=== PATIENT | male | born 1955 | race Caucasian/White ===

== ENCOUNTER 2019-05-09 13:43 | Inpatient (IN) | payer OTHER ==
[~2019-05-09] VITALS: Ht 175.3 cm; Wt 91.7 kg
[~2019-05-09 13:43] MED LIST: HYDCHL12.5 PO; LISI20 PO; Metformin HCl1000 MG PO
[2019-05-09 14:30] LABS: BASOPHILS ABSOLUTE AUTO 0.07 K/mm3 (0.00-0.23); BASOPHILS PERCENT AUTO 0 % (0-2); EOSINOPHILS ABSOLUTE AUTO 0.22 K/mm3 (0.00-0.68); EOSINOPHILS PERCENT AUTO 1 % (0-6); Hematocrit 31.6 % (37.0-53.0); Hemoglobin 10.4 g/dL (13.5-17.5); IMMATURE GRAN ABSOLUTE AUTO 0.24 K/mm3 (0.00-0.10); IMMATURE GRAN PERCENT AUTO 1 % (0-1); LYMPHOCYTES ABSOLUTE AUTO 1.99 K/mm3 (0.84-5.20); LYMPHOCYTES PERCENT AUTO 12 % (21-46); MONOCYTES ABSOLUTE AUTO 1.95 K/mm3 (0.16-1.47); MONOCYTES PERCENT AUTO 12 % (4-13); Mean Corpuscular HGB 34.2 pg (26.0-34.0); Mean Corpuscular HGB Conc 32.9 g/dL (31.5-36.5); Mean Corpuscular Volume 104 fL (80-100); Mean Platelet Volume 12.4 fL (9.1-12.4); NEUTROPHILS ABSOLUTE AUTO 12.48 K/mm3 (1.96-9.15); NEUTROPHILS PERCENT AUTO 74 % (41-73); Platelet Count 260 K/mm3 (150-400); RDW Coefficient Variation 18.9 % (11.7-14.2); RDW Standard Deviation 69.7 fL (35.1-46.3); Red Blood Cell Count 3.04 M/mm3 (4.30-5.90); White Blood Cell Count 16.95 K/mm3 (4.00-11.30)
[2019-05-09 14:44] LABS: Troponin I <0.015 ng/mL (0.000-0.040)
[2019-05-09 14:45] LABS: Alanine Aminotransfer (ALT/SGP 247 U/L (12-78); Albumin, Blood 1.6 g/dL (3.4-5.0); Albumin/Globulin Ratio 0.3 (0.8-1.8); Alk Phos 553 U/L (50-136); Anion Gap 11 mmol/L (6-16); Aspartate Aminotrans (AST/SGOT 344 U/L (12-37); Bilirubin, Total 8.5 mg/dL (0.1-1.0); Blood Urea Nitrogen 27 mg/dL (8-24); Bun/Creatinine Ratio 20.3 (12.0-20.0); CO2, Blood 15 mmol/L (21-32); Calcium, Blood 8.2 mg/dL (8.5-10.1); Chloride, Blood 109 mmol/L (98-108); Creatinine, Blood 1.33 mg/dL (0.60-1.20); Globulin, Blood 5.6 g/dL (2.2-4.0); Glomerular Filtration Rate 58 (60-); Glucose, Blood 128 mg/dL (70-99); Potassium, Blood 4.4 mmol/L (3.5-5.5); Sodium, Blood 135 mmol/L (136-145); Total Protein, Blood 7.2 g/dL (6.4-8.2)
[2019-05-09] MEDS ORDERED: AMLO10 PO (15:16)
[2019-05-09] MEDS ORDERED: Lopressor 25 mg25 MG PO (15:16)
[2019-05-09] MEDS ORDERED: ZESTRIL40 MG PO (15:16)
[2019-05-09] MEDS ORDERED: DOXY100 PO (15:17)
[2019-05-09 15:50] LABS: International Normalized Ratio 1.76; Prothrombin Time Results 17.7 Sec (9.7-11.5)
[2019-05-09] MEDS ORDERED: TRIA15CR3 TOP (19:07)
[2019-05-09 19:10] LABS: International Normalized Ratio 1.87; Prothrombin Time Results 18.7 Sec (9.7-11.5)
--- NOTE | 2019-05-10 04:48 | NUR ---
SHIFT SUMMARY: PT IS ALERT AND ORIENTED. PT IS CALM AND COOPERATIVE WITH CARE. PT CALLS APPROPRIATELY. PT IS INDEPENDENT IN THE ROOM. PT DENIES PAIN, NAUSEA, VOMITING, AND SOB. CONSULT CALLED FOR DR. JETER THROUGH ANSWERING SERVICE. PT SLEPT MUCH OF THE NIGHT WHEN NOT DISTURBED. NO ACUTE CHANGES OVERNIGHT. WILL CONTINUE TO MONITOR.
[2019-05-10 05:17] LABS: BASOPHILS ABSOLUTE AUTO 0.09 K/mm3 (0.00-0.23); BASOPHILS PERCENT AUTO 1 % (0-2); EOSINOPHILS ABSOLUTE AUTO 0.17 K/mm3 (0.00-0.68); EOSINOPHILS PERCENT AUTO 1 % (0-6); Hematocrit 29.9 % (37.0-53.0); Hemoglobin 9.9 g/dL (13.5-17.5); IMMATURE GRAN ABSOLUTE AUTO 0.29 K/mm3 (0.00-0.10); IMMATURE GRAN PERCENT AUTO 2 % (0-1); LYMPHOCYTES ABSOLUTE AUTO 2.32 K/mm3 (0.84-5.20); LYMPHOCYTES PERCENT AUTO 14 % (21-46); MONOCYTES ABSOLUTE AUTO 1.88 K/mm3 (0.16-1.47); MONOCYTES PERCENT AUTO 11 % (4-13); Mean Corpuscular HGB 33.9 pg (26.0-34.0); Mean Corpuscular HGB Conc 33.1 g/dL (31.5-36.5); Mean Corpuscular Volume 102 fL (80-100); Mean Platelet Volume 12.7 fL (9.1-12.4); NEUTROPHILS ABSOLUTE AUTO 12.41 K/mm3 (1.96-9.15); NEUTROPHILS PERCENT AUTO 72 % (41-73); Platelet Count 273 K/mm3 (150-400); RDW Coefficient Variation 18.6 % (11.7-14.2); RDW Standard Deviation 67.4 fL (35.1-46.3); Red Blood Cell Count 2.92 M/mm3 (4.30-5.90); White Blood Cell Count 17.16 K/mm3 (4.00-11.30)
[2019-05-10 05:41] LABS: Albumin, Blood 1.7 g/dL (3.4-5.0); Albumin/Globulin Ratio 0.3 (0.8-1.8); Bun/Creatinine Ratio 21.4 (12.0-20.0); Calcium, Blood 8.4 mg/dL (8.5-10.1); Creatinine, Blood 1.31 mg/dL (0.60-1.20); Globulin, Blood 5.4 g/dL (2.2-4.0); Potassium, Blood 4.1 mmol/L (3.5-5.5); Total Protein, Blood 7.1 g/dL (6.4-8.2)
--- NOTE | 2019-05-10 18:59 | NUR ---
NO ACUTE CHANGES THIS SHIFT. PATIENT STARTED ON NS @ 100X2 BAGS TIDAY AND LASIX D/C'D. PATIENT DENIES ANY PAIN. VSS, ON RA. 20G IV TO L FA WNL. TOLERATING FL DIET. SKIN JAUNDICED, BUT INTACT. A/OX4, UP INDEPENDENTLY IN ROOM. CALM AND COOPERATIVE WITH CARE, CALLS APPROPRIATELY FOR ASSISTANCE.
[2019-05-11 02:06] LABS: HBSAG SCREEN Negative (Negative); HEP A AB, IGM Negative (Negative); HEP B CORE AB, IGM Negative (Negative); HEP C VIRUS AB >11.0 (0.0-0.9)
--- NOTE | 2019-05-11 04:11 | NUR ---
SHIFT SUMMARY: PT IS ALERT AND ORIENTED. PT IS CALM AND COOPERATIVE WITH CARE. PT CALLS APPROPRIATELY. PT IS INDEPENDENT IN THE ROOM. PT DENIES PAIN, NAUSEA, VOMITING, AND SOB. 2ND BAG OF FLUIDS RUNNING. PT SLEPT INTERMITTENTLY THROUGHOUT THE NIGHT. POSSIBLE DC TODAY. NO ACUTE CHANGES OR COMPLICATIONS. WILL REPORT TO DAY NURSE.
[2019-05-11 05:37] LABS: Alanine Aminotransfer (ALT/SGP 188 U/L (12-78); Albumin, Blood 2.1 g/dL (3.4-5.0); Albumin/Globulin Ratio 0.4 (0.8-1.8); Alk Phos 495 U/L (50-136); Anion Gap 8 mmol/L (6-16); Aspartate Aminotrans (AST/SGOT 244 U/L (12-37); Blood Urea Nitrogen 23 mg/dL (8-24); CO2, Blood 19 mmol/L (21-32); Calcium, Blood 8.3 mg/dL (8.5-10.1); Chloride, Blood 112 mmol/L (98-108); Globulin, Blood 4.9 g/dL (2.2-4.0); Glomerular Filtration Rate >60 (60-); Glucose, Blood 135 mg/dL (70-99); Potassium, Blood 4.1 mmol/L (3.5-5.5); Sodium, Blood 139 mmol/L (136-145)
[2019-05-11 11:26] LABS: Antinuclear Antibody Screen Negative (Negative)
--- NOTE | 2019-05-11 12:00 | NUR ---
PATIENT D/C'D TO [facility] WITH FAMILY. RX MEDICATIONS FAXED TO [facility] IN [place]. D/C INSTRUCTIONS AND EDUCATION DISCUSSED WITH PATIENT AND COPY PROVIDED. PATIENT DENIES ANY FURTHER QUESTIONS OR CONCERNS.
[2019-05-12 21:05] LABS: HCV LOG10 6.587 (.); HEPATITIS C QUANTITATION 3860000 IU/mL (.)
[2019-05-17 10:07] LABS: HEPATITIS C GENOTYPE 1a (.)
== END 2019-05-11 12:07 | disposition home or self-care (01) | DRG 434 ==
LOC: ER 13:43 → MEDS 17:48 → ENPENDDIS 05-11 10:50 → MEDS 05-11 12:07
PROVIDERS: Emergency Medicine; ADMIT Internal Medicine
DX: K74.69 Other cirrhosis of liver (principal); K70.10 Alcoholic hepatitis without ascites; E88.09 Other disorders of plasma-protein metabolism, not elsewhere classified; I95.9 Hypotension, unspecified; I10 Essential (primary) hypertension; J44.9 Chronic obstructive pulmonary disease, unspecified; E11.51 Type 2 diabetes mellitus with diabetic peripheral angiopathy without gangrene; E11.42 Type 2 diabetes mellitus with diabetic polyneuropathy; Z87.891 Personal history of nicotine dependence; Z79.84 Long term (current) use of oral hypoglycemic drugs; Z79.4 Long term (current) use of insulin; Z79.899 Other long term (current) drug therapy
CPT/HCPCS: 36415; 71046; 74176; 76705; 80053; 80074; 82105; 82140; 82947; 83880; 84484; 85025; 85610; 85730; 86038; 87522; 87902; 93005; 93010; 96365; 99285-25; J1940; J7030; J7050; P9046

== ENCOUNTER 2019-05-22 17:43 | Emergency (ER) | payer OTHER ==
[~2019-05-22] VITALS: Ht 175.3 cm; Wt 93.0 kg
[~2019-05-22 17:43] MED LIST changes: +AMLO10 PO; +DOXY100 PO; +Lopressor 25 mg25 MG PO; +TRIA15CR3 TOP; +ZESTRIL40 MG PO
[2019-05-22 18:20] LABS: BASOPHILS ABSOLUTE AUTO 0.05 K/mm3 (0.00-0.23); BASOPHILS PERCENT AUTO 0 % (0-2); EOSINOPHILS ABSOLUTE AUTO 0.19 K/mm3 (0.00-0.68); EOSINOPHILS PERCENT AUTO 1 % (0-6); Hematocrit 23.1 % (37.0-53.0); Hemoglobin 8.1 g/dL (13.5-17.5); IMMATURE GRAN ABSOLUTE AUTO 0.77 K/mm3 (0.00-0.10); IMMATURE GRAN PERCENT AUTO 4 % (0-1); LYMPHOCYTES ABSOLUTE AUTO 2.53 K/mm3 (0.84-5.20); LYMPHOCYTES PERCENT AUTO 12 % (21-46); MONOCYTES ABSOLUTE AUTO 2.73 K/mm3 (0.16-1.47); MONOCYTES PERCENT AUTO 13 % (4-13); Mean Corpuscular HGB 35.5 pg (26.0-34.0); Mean Corpuscular HGB Conc 35.1 g/dL (31.5-36.5); Mean Corpuscular Volume 101 fL (80-100); Mean Platelet Volume 12.5 fL (9.1-12.4); NEUTROPHILS PERCENT AUTO 71 % (41-73); NRBC ABSOLUTE 0.02 K/mm3 (0.00-0.02); NRBC Auto 0.1 /100 WBC (0.0-0.2); Platelet Count 282 K/mm3 (150-400); RDW Coefficient Variation 23.5 % (11.7-14.2); RDW Standard Deviation 81.6 fL (35.1-46.3); Red Blood Cell Count 2.28 M/mm3 (4.30-5.90); White Blood Cell Count 21.57 K/mm3 (4.00-11.30)
[2019-05-22 18:48] LABS: Albumin, Blood 1.9 g/dL (3.4-5.0); Albumin/Globulin Ratio 0.4 (0.8-1.8); Bun/Creatinine Ratio 29.5 (12.0-20.0); Creatinine, Blood 1.83 mg/dL (0.60-1.20); Globulin, Blood 5.4 g/dL (2.2-4.0); Potassium, Blood 4.3 mmol/L (3.5-5.5); Total Protein, Blood 7.3 g/dL (6.4-8.2)
[2019-05-22 19:04] LABS: International Normalized Ratio 1.91; Prothrombin Time Results 19.1 Sec (9.7-11.5)
[2019-05-22 20:27] LABS: Potassium, Blood 4.2 mmol/L (3.5-5.5)
[2019-05-22 21:04] LABS: Automated BF RBC Count 0.022 M/mm3 (0-0); Automated BF WBC Count 0.272 K/mm3 (0-999); Body Fluid WBC Count 272 /mm3 (0-999); RBC Count, Body Fluid 22000 /mm3 (0-0)
[2019-05-22 21:06] LABS: Lactate Dehydrogenase, Body Fl 207 U/L
[2019-05-22] MEDS ORDERED: NOVOLOG FL100 UNIT/1 SC (21:06)
[2019-05-22] MEDS ORDERED: PREG100 PO (21:07)
[2019-05-22] MEDS ORDERED: Midodrine HCl2.5 MG PO (21:07)
[2019-05-22] MEDS ORDERED: THERA1 EACH PO (21:08)
[2019-05-22 21:35] LABS: Appearance, Body Fluid Cloudy (Clear); Color, Body Fluid Amber (None-Yellow); Total Cell Count, Body Fluid 100
[2019-05-22] MEDS ORDERED: Flagyl500 MG PO (21:59)
[2019-05-22] MEDS ORDERED: Augmentin 500-1 EACH PO (21:59)
== END 2019-05-22 22:30 | disposition home or self-care (01) ==
LOC: ER 17:43
PROVIDERS: Emergency Medicine
DX: K72.90 Hepatic failure, unspecified without coma (principal); R18.8 Other ascites; Z79.4 Long term (current) use of insulin; Z79.899 Other long term (current) drug therapy; E11.9 Type 2 diabetes mellitus without complications; Z87.891 Personal history of nicotine dependence
CPT/HCPCS: 36415; 49082; 80051; 80053; 82140; 83605; 83615; 83690; 85025; 85610; 87040; 87070; 87075; 87205; 89051; 96365; 96375; 99285-25; A9270-GY; C9113; G0480; J0696; J1200; J2354

== ENCOUNTER 2019-05-28 00:48 | Inpatient (IN) | payer OTHER ==
[~2019-05-28] VITALS: Ht 175.3 cm; Wt 88.8 kg
[~2019-05-28 00:48] MED LIST changes: +Augmentin 500-1 EACH PO; +Flagyl500 MG PO; +Midodrine HCl2.5 MG PO; +NOVOLOG FL100 UNIT/1 SC; +PREG100 PO; +THERA1 EACH PO
[2019-05-28 01:23] LABS: BASOPHILS ABSOLUTE AUTO 0.03 K/mm3 (0.00-0.23); BASOPHILS PERCENT AUTO 0 % (0-2); EOSINOPHILS ABSOLUTE AUTO 0.11 K/mm3 (0.00-0.68); EOSINOPHILS PERCENT AUTO 1 % (0-6); Hematocrit 23.9 % (37.0-53.0); Hemoglobin 8.6 g/dL (13.5-17.5); IMMATURE GRAN ABSOLUTE AUTO 0.54 K/mm3 (0.00-0.10); IMMATURE GRAN PERCENT AUTO 3 % (0-1); LYMPHOCYTES ABSOLUTE AUTO 1.14 K/mm3 (0.84-5.20); LYMPHOCYTES PERCENT AUTO 6 % (21-46); MONOCYTES ABSOLUTE AUTO 2.44 K/mm3 (0.16-1.47); MONOCYTES PERCENT AUTO 14 % (4-13); Mean Corpuscular HGB 36.3 pg (26.0-34.0); Mean Corpuscular Volume 101 fL (80-100); NEUTROPHILS ABSOLUTE AUTO 13.68 K/mm3 (1.96-9.15); NEUTROPHILS PERCENT AUTO 76 % (41-73); NRBC ABSOLUTE 0.02 K/mm3 (0.00-0.02); NRBC Auto 0.1 /100 WBC (0.0-0.2); Platelet Count 225 K/mm3 (150-400); RDW Coefficient Variation 22.8 % (11.7-14.2); Red Blood Cell Count 2.37 M/mm3 (4.30-5.90); White Blood Cell Count 17.94 K/mm3 (4.00-11.30)
[2019-05-28 01:44] LABS: Albumin, Blood 1.4 g/dL (3.4-5.0); Albumin/Globulin Ratio 0.3 (0.8-1.8); Bilirubin, Total 19.5 mg/dL (0.1-1.0); Bun/Creatinine Ratio 18.7 (12.0-20.0); Calcium, Blood 7.9 mg/dL (8.5-10.1); Creatinine, Blood 3.59 mg/dL (0.60-1.20); Globulin, Blood 5.3 g/dL (2.2-4.0); Potassium, Blood 4.5 mmol/L (3.5-5.5); Total Protein, Blood 6.7 g/dL (6.4-8.2)
[2019-05-28 02:01] LABS: International Normalized Ratio 1.99; Prothrombin Time Results 19.8 Sec (9.7-11.5)
[2019-05-28] MEDS ORDERED: BASAGLAR K100 UNIT/1 SC (02:15)
[2019-05-28 05:11] LABS: Hematocrit 23.9 % (37.0-53.0); Hemoglobin 8.6 g/dL (13.5-17.5); Mean Corpuscular HGB 36.9 pg (26.0-34.0); Mean Corpuscular Volume 103 fL (80-100); Mean Platelet Volume 12.7 fL (9.1-12.4); NRBC ABSOLUTE 0.02 K/mm3 (0.00-0.02); NRBC Auto 0.1 /100 WBC (0.0-0.2); Platelet Count 209 K/mm3 (150-400); RDW Coefficient Variation 22.8 % (11.7-14.2); RDW Standard Deviation 81.3 fL (35.1-46.3); Red Blood Cell Count 2.33 M/mm3 (4.30-5.90); White Blood Cell Count 18.03 K/mm3 (4.00-11.30)
[2019-05-28 05:36] LABS: Albumin, Blood 1.6 g/dL (3.4-5.0); Albumin/Globulin Ratio 0.3 (0.8-1.8); Bilirubin, Total 19.2 mg/dL (0.1-1.0); Bun/Creatinine Ratio 18.6 (12.0-20.0); Calcium, Blood 7.8 mg/dL (8.5-10.1); Creatinine, Blood 3.6 mg/dL (0.60-1.20); Globulin, Blood 4.8 g/dL (2.2-4.0); Potassium, Blood 4.4 mmol/L (3.5-5.5); Total Protein, Blood 6.4 g/dL (6.4-8.2)
[2019-05-28 14:48] LABS: Source, Urine Catheter
[2019-05-28 14:59] LABS: Blood, Urine 2+ (Neg); Glucose Qualitative, Urine Neg (Neg); Ketones, Urine Neg (Neg); Leukocyte Esterase, Urine 1+ (Neg); Nitrite, Urine Pos (Neg); Protein, Urine 2+ (Neg); Specific Gravity, Urine 1.015 (1.003-1.022); Urobilinogen, Urine 1+ (Normal)
[2019-05-28 15:29] LABS: Appearance, Urine Hazy (Clear); Bilirubin, Urine 3+ (Neg); Color, Urine Amber (P-Yellow)
[2019-05-28 15:36] LABS: Amorphous Heavy (0-Heavy); Bacteria Many /hpf; Renal Epithelial Mod /hpf (0-Rare); Spermatozoa Few /hpf; Squamous Epithelial Cells Not Seen /hpf (Few)
[2019-05-28 17:44] LABS: Albumin, Blood 1.5 g/dL (3.4-5.0); Anion Gap 14 mmol/L (6-16); Blood Urea Nitrogen 66 mg/dL (8-24); Bun/Creatinine Ratio 18.2 (12.0-20.0); CO2, Blood 14 mmol/L (21-32); Calcium, Blood 7.5 mg/dL (8.5-10.1); Chloride, Blood 102 mmol/L (98-108); Creatinine, Blood 3.62 mg/dL (0.60-1.20); Glomerular Filtration Rate 18 (60-); Glucose, Blood 124 mg/dL (70-99); Phosphorus, Blood 5.8 mg/dL (2.5-4.9); Potassium, Blood 4.2 mmol/L (3.5-5.5); Sodium, Blood 130 mmol/L (136-145)
--- NOTE | 2019-05-28 18:42 | NUR ---
SHIFT SUMMARY S.O. AT BEDSIDE MOST OF DAY. BED ALARM ON FOR SAFETY. APPEARS ORIENTED BUT S.O. REPORTS HISTORY OF COFUSION AND HALLUCINATIONS. NONE TODAY. LINARES STARTED DUE TO PT BEING UNABLE TO URINATE ON HIS OWN. 1-2 PERSON ASSIST TRANSFERRING TO COMMODE. ABDOMEN DISTENDED BUT ACCORDING TO CAPACITY PLANNING ENGINEER NO FLUID TO TAP NOTED. PT SCRATCHING FREQUENTLY. ATARAX GIVEN AND PT REPORTS IT HELPED BUT HE DOES HAVE MULTIPLE SITES WHERE HE HAS BROKEN THE SKIN AND STARTED TO BLEED. BANDAIDS PLACED WITH 2X2 GAUZE TO PROVIDE PRESSURE TO STOP THE BLEEDING.
[2019-05-29 05:44] LABS: Hematocrit 24.2 % (37.0-53.0); Hemoglobin 8.6 g/dL (13.5-17.5); Mean Corpuscular HGB 35.8 pg (26.0-34.0); Mean Corpuscular HGB Conc 35.5 g/dL (31.5-36.5); Mean Corpuscular Volume 101 fL (80-100); Mean Platelet Volume 12.8 fL (9.1-12.4); NRBC ABSOLUTE 0.02 K/mm3 (0.00-0.02); NRBC Auto 0.1 /100 WBC (0.0-0.2); Platelet Count 216 K/mm3 (150-400); RDW Coefficient Variation 22.2 % (11.7-14.2); RDW Standard Deviation 77.6 fL (35.1-46.3); White Blood Cell Count 19.51 K/mm3 (4.00-11.30)
[2019-05-29 05:58] LABS: International Normalized Ratio 1.93; Prothrombin Time Results 19.3 Sec (9.7-11.5)
[2019-05-29 06:06] LABS: Albumin, Blood 1.5 g/dL (3.4-5.0); Albumin/Globulin Ratio 0.3 (0.8-1.8); Bilirubin, Total 19.2 mg/dL (0.1-1.0); Bun/Creatinine Ratio 17.7 (12.0-20.0); Calcium, Blood 7.6 mg/dL (8.5-10.1); Creatinine, Blood 4.07 mg/dL (0.60-1.20); Globulin, Blood 4.8 g/dL (2.2-4.0); Potassium, Blood 4.2 mmol/L (3.5-5.5); Total Protein, Blood 6.3 g/dL (6.4-8.2)
--- NOTE | 2019-05-29 06:10 | NUR ---
SHIFT SUMMARY: PT IS ALERT AND ORIENTED WITH MINOR CONFUSION. PT IS A 1-2 PERSON ASSIST TO THE BSC. PT CALLS APPROPRIATELY. PT HAD ONE INCONTINENT BM, CHANGED AND CLEANED. PT SCRATCHING HIMSELF, MULTIPLE AREAS BLEEDING, CLEANED AND BANDAGED NEEDED. LINARES PATENT AND DRAINING DARK URINE. PT PULLED IV FROM LAC, POWERGLIDE STILL WNL. PT DENIES PAIN, NAUSEA, VOMITING, AND SOB. NO ACUTE CHANGES OVERNIGHT. WILL CONTINUE TO MONITOR.
--- NOTE | 2019-05-29 16:44 | NUR ---
Echocardiogram completed.
[2019-05-30 02:12] LABS: BASOPHILS ABSOLUTE AUTO 0.02 K/mm3 (0.00-0.23); BASOPHILS PERCENT AUTO 0 % (0-2); EOSINOPHILS ABSOLUTE AUTO 0.03 K/mm3 (0.00-0.68); EOSINOPHILS PERCENT AUTO 0 % (0-6); Hematocrit 23.6 % (37.0-53.0); Hemoglobin 8.2 g/dL (13.5-17.5); IMMATURE GRAN ABSOLUTE AUTO 0.42 K/mm3 (0.00-0.10); IMMATURE GRAN PERCENT AUTO 2 % (0-1); LYMPHOCYTES ABSOLUTE AUTO 1.06 K/mm3 (0.84-5.20); LYMPHOCYTES PERCENT AUTO 6 % (21-46); MONOCYTES ABSOLUTE AUTO 1.63 K/mm3 (0.16-1.47); MONOCYTES PERCENT AUTO 9 % (4-13); Mean Corpuscular HGB 35.7 pg (26.0-34.0); Mean Corpuscular HGB Conc 34.7 g/dL (31.5-36.5); Mean Corpuscular Volume 103 fL (80-100); Mean Platelet Volume 12.7 fL (9.1-12.4); NEUTROPHILS ABSOLUTE AUTO 14.75 K/mm3 (1.96-9.15); NEUTROPHILS PERCENT AUTO 82 % (41-73); NRBC ABSOLUTE 0.02 K/mm3 (0.00-0.02); NRBC Auto 0.1 /100 WBC (0.0-0.2); Platelet Count 212 K/mm3 (150-400); RDW Coefficient Variation 22.9 % (11.7-14.2); RDW Standard Deviation 82.1 fL (35.1-46.3); White Blood Cell Count 17.91 K/mm3 (4.00-11.30)
--- NOTE | 2019-05-30 02:12 | NUR ---
PICC LINE PULLED BY PT CN AGREED THAT LINE LOOKED COMPLETE AT 8CM
[2019-05-30 02:27] LABS: International Normalized Ratio 2.04; Prothrombin Time Results 20.3 Sec (9.7-11.5)
[2019-05-30 02:37] LABS: Albumin, Blood 1.9 g/dL (3.4-5.0); Albumin/Globulin Ratio 0.5 (0.8-1.8); Bun/Creatinine Ratio 18.3 (12.0-20.0); Calcium, Blood 7.5 mg/dL (8.5-10.1); Creatinine, Blood 4.43 mg/dL (0.60-1.20); Globulin, Blood 4.2 g/dL (2.2-4.0); Potassium, Blood 3.9 mmol/L (3.5-5.5); Total Protein, Blood 6.1 g/dL (6.4-8.2)
[2019-05-30 02:38] LABS: Percent Saturation 100.8 % (20.0-50.0)
--- NOTE | 2019-05-30 07:12 | NUR ---
restraints in place to protect skin and tubes, call light in reach, family in room, room air, saline locked and wrapped, bsr given to day nurse, pt remains confused at time with uncontrolled scratching
--- NOTE | 2019-05-30 07:26 | NUR ---
while cleaning under bed at the end of shift found the real end of picc line tucked between matress and frame, which was 10cm and tapered at the end as expected, disposed in sharps container after showing to charge nurse
--- NOTE | 2019-05-30 16:53 | NUR ---
INTO [facility] VIA [facility]. PT AWAKE AND ALERT. SKIN AND SCLERA JAUNDICED. AUDIBLY WZ-DUO NEB GIVEN. HISTORY AND ALLERGIES REVIEWED-NPO STATUS CONFIRMED. ABDOMINAL ASCITES NOTED.
--- NOTE | 2019-05-30 16:58 | NUR ---
05/30/19 1658 Marlene Ely History, Chart, Medications and Allergies reviewed before start of procedure. PATIENT CONFIRMS NPO STATUS AND AGREES WITH SCHEDULED PROCEDURE. History, Chart, Medications and Allergies reviewed before start of procedure. See Anesthesia record MONITOR INTACT WITH CONTINUOUS PULSE OXIMETRY AND INTERMITTENT BP. O2 VIA N/C INTACT THROUGHOUT SEDATION/PROCEDURE.
--- NOTE | 2019-05-30 19:30 | NUR ---
SHIFT SUMMARY: NO ACUTE CHANGES TO REPORT THIS SHIFT. PT A&O; CALM AND COOPERATIVE WITH CARE. PT CURRENTLY IN BILATERAL SOFT WRIST RESTRAINTS PER PATIENT REQUEST: PATIENT ITCHING & SCRATCHING R/T HEPATIC FAIL; MULTIPLE SCABS & SORES FROM PATIENT SCRATCHING. TELE IN PLACE; SR @ 97 PER CUSHION COVER INSPECTOR DURING MORNING ASSESSMENT. LINARES IN PLACE; PATENT & DRAINING; DIURESIS CONTINUING. CLEAR LIQUID DIET; NPO AFTER MIDNIGHT FOR EGD 05/31 AFTERNOON. REPORT GIVEN TO ONCOMING RN.
--- NOTE | 2019-05-31 03:47 | NUR ---
PCU tele monitor called to warn that hr was dropping entered room to gasping sound, raised head of bed adjusted pt to ease breathing, found hr but it was slowed until it stopped, cn confirmed no heart beat at 0330, family member at bedside, notified family, informed supervisor production managing that [facility] was the destination of choice, assisted aid to clean up/straigten up body, family tool all belongings and departed at 0422, informed cn
--- NOTE | 2019-05-31 08:00 | NUR ---
pt was a+o when shift started, he continued to have episodes of confusion where he would start talking about seeing things in his room (a blimp was memorable) but was aware of who, where, why and when, was in room and remained there except for air breaks, at 2300 the asked for an assessement of the pt, bp was low but had been low for most of the time in the hospital, what had changed was his breathing and loc, placed nc and brought up o2 level from 70's to 90's within 5 minuets, however the confusion remained so a rapid was called and the dr who had admitted the pt was able to talk to the and she decided to change status to DNR, loc improved but remained lower then the previous baseline, treated for pain and renewed restraint at families suggestion/request due to the fact that the pt would scratch himself without being aware he was doing it, he also pulled on his franco and iv, would remove restraint from hand she was holding then replace them when she was away from the bed, more family came in and talked to pt and , after they left renewal of restrain was requested and granted based on family request and pt continued scratching, commented how nice it was to see pt in a clean bed now that he was no longer scratching himself and bleeding, checked on pt at 158 to verify restriants were appropriate and found him resting quietly, was resting on couch
== END 2019-05-31 03:30 | DRG 682 ==
LOC: ER 00:48 → MEDS 04:01
PROVIDERS: Emergency Medicine; Internal Medicine; Internal Medicine Gastroenterology; ADMIT Internal Medicine
PROC: 0DJ08ZZ Inspection of Upper Intestinal Tract, Via Natural or Artificial Opening Endoscopic (ICD-10-PCS; principal; 2019-05-30 16:00)
DX: N17.9 Acute kidney failure, unspecified (principal); K25.4 Chronic or unspecified gastric ulcer with hemorrhage; I50.31 Acute diastolic (congestive) heart failure; K76.7 Hepatorenal syndrome; E87.2 Acidosis; K22.10 Ulcer of esophagus without bleeding; K72.90 Hepatic failure, unspecified without coma; Z66 Do not resuscitate; Z90.81 Acquired absence of spleen; Z79.4 Long term (current) use of insulin; Z87.891 Personal history of nicotine dependence; K70.30 Alcoholic cirrhosis of liver without ascites; E11.42 Type 2 diabetes mellitus with diabetic polyneuropathy; E88.09 Other disorders of plasma-protein metabolism, not elsewhere classified; B19.20 Unspecified viral hepatitis C without hepatic coma; K70.10 Alcoholic hepatitis without ascites; E11.51 Type 2 diabetes mellitus with diabetic peripheral angiopathy without gangrene; J98.01 Acute bronchospasm; R60.1 Generalized edema; N18.3 Chronic kidney disease, stage 3 (moderate); I12.9 Hypertensive chronic kidney disease with stage 1 through stage 4 chronic kidney disease, or unspecified chronic kidney disease; E11.22 Type 2 diabetes mellitus with diabetic chronic kidney disease; I95.9 Hypotension, unspecified
CPT/HCPCS: 36415; 71045; 76705; 80053; 80069; 81001; 82140; 82607; 82728; 82746; 82947; 83540; 83550; 83690; 83735; 83880; 84300; 85025; 85027; 85610; 87040; 87086; 87493; 93005; 93010; 93306; 94640; 94760; 96361; 96365; 99285-25; J0696; J2354; J2405; J2704; J3010; J7030; J7050; J7120; P9045; P9046